=== PATIENT | male | born 1965 | race Caucasian/White ===

== ENCOUNTER 2016-12-01 00:04 | Observation (INO) | payer BC, OTHER ==
[~2016-12-01] VITALS: Ht 180.3 cm; Wt 88.2 kg
[~2016-12-01 00:04] MED LIST: ALBUAER2 INH; B-COTAB18 PO; LRS10 PO; LSN25 PO; MULTTAB58 PO; OXY/15 PO; SYMIN/8045 INH; TPRSR/25 PO
[2016-12-01] MEDS ORDERED: NITROGLYCERIN 0.4 MG SL PER TAB CHARGE SL PRN ×2 (00:15→01:45)
[2016-12-01 00:26] LABS: BASO % 0.3 %; BASO ABS # 0.03 K/uL (0-0.2); COMPLETE YES; EOS % 1.6 %; HEMATOCRIT 48.1 % (42-52); IG% 0.1 %; LYMPH % 18.2 %; LYMPH ABS # 1.95 K/uL (1.2-3.4); MEAN CELL VOLUME 83.1 fL (80-100); MEAN CORPUSCULAR HEMOGLOBIN 30.2 pg (25-34); MEAN CORPUSCULAR HGB CONC 36.4 g/dl (32-36); MEAN PLATELET VOLUME 10.7 fL (7.4-10.4); MONO % 6.8 %; PLATELET COUNT 237 K/uL (130-400); RED BLOOD COUNT 5.79 M/uL (4.7-6.1); WHITE BLOOD COUNT 10.69 K/uL (4.8-10.8)
[2016-12-01 00:44] LABS: ALT/SGPT 30 U/L (12-78); AST/SGOT 10 U/L (15-37); BLOOD UREA NITROGEN 16 mg/dl (7-18); BUN/CREATININE RATIO 12.4 (10-20); CALCIUM 9.1 mg/dl (8.5-10.1); CARBON DIOXIDE 26 mmol/L (21-32); CHLORIDE 108 mmol/L (98-107); GLUCOSE 102 mg/dl (70-99); POTASSIUM 3.4 mmol/L (3.5-5.1); SODIUM 145 mmol/L (136-145)
[2016-12-01] MEDS ORDERED: VNTHFA/IN PO ×2 (00:45→14:50)
[2016-12-01 00:49] LABS: ALKALINE PHOSPHATASE 73 U/L (45-117)
--- NOTE | 2016-12-01 01:26 | EMERGENCY ROOM VISIT NOTE ---
History First contact with patient: 23:45 Chief Complaint: CHEST PAIN Stated Complaint: CHEST PAIN/SHORT OF BREATH Nursing Triage Summary: c/o left sided CP that radiates behind left ear and down left arm that started around 2200. Pt states he felt "like i've been hit in the chest". Pt states he experienced CP 3 days ago that was sharp, but only lasted a few seconds. Also noted vomiting 3 days ago. Pt states he has not been taking his metoprolol or lisinopril due to money issues. History of Present Illness The patient is a 51 year old male who presents to the Emergency Room with complaints of chest pain that radiates to his neck and jaw and shoulder for the past few hours. Patient has a history of heart disease. He is unsure she's had a heart attack. He lost his insurance has not seen anybody in several months. He has not taken his blood pressure medication. His brother had a heart attack and his father has extensive heart disease also. Patient does not smoke. He describes the chest pain as discomfort, ranging in severity currently 7 out of 10. EMS gave nitroglycerin and aspirin with some improvement of symptoms. Patient states he is mildly short of breath because of the pain. Patient denies diaphoresis, nausea, vomiting, abdominal pain, leg pain or swelling, recent travel, tobacco use, history DVT, PE or family history of DVT or PE. No injury to the area. Review of Systems See HPI for pertinent positives & negatives. A total of 10 systems reviewed and were otherwise negative. Past Medical/Surgical History Medical Problems: (1) Asthma (2) Heart disease (3) Hypertension (4) Tear of meniscus of left knee Surgical Problems: (1) H/O cardiac catheterization Family History FHx: heart disease Hypertension Social History Smoking Status: Never Smoker Marital Status: Occupation Status: unemployed Current/Historical Medications Scheduled Budesonide/Formoterol Fumarate (Symbicort 80/4.5 Inhaler), 2 PUFFS INH DAILY Lisinopril (Lisinopril), 2.5 MG PO DAILY Metoprolol Succinate (Metoprolol Succinate ER), 25 MG PO DAILY Multiple Vitamin (Multivitamin), 1 TAB PO DAILY Oxycodone Hcl (Oxycodone Hcl), 15 MG PO QID Scheduled PRN Albuterol Hfa (Ventolin Hfa), 2 PUFFS PO QID PRN for SOB/Wheezing Baclofen (Baclofen), 10 MG PO TID PRN for Back Spasm Allergies Coded Allergies: No Known Allergies (Unverified , 12/01/16) Physical Exam Vital Signs Date Time Temp Pulse Resp B/P (MAP) Pulse Ox O2 Delivery O2 Flow Rate FiO2 12/01/16 00:35 101 18 108/61 95 Room Air 12/01/16 00:31 76 128/73 12/01/16 00:22 98 Room Air 12/01/16 00:16 36.9 93 18 139/94 98 Room Air 12/01/16 00:15 88 12/01/16 00:09 98 Room Air 12/01/16 00:08 98 Room Air Physical Exam VITALS: Vitals are noted on the nurse's note and reviewed by myself. Vital signs stable. GENERAL: Pleasant male, in no acute distress, nondiaphoretic, well-developed well-nourished. SKIN: The skin was without rashes, erythema, edema, or bruising. There is no tenting of the skin. Capillary reflex less than 2 seconds. HEAD: Normocephalic atraumatic. EARS: External auditory canals clear, tympanic membranes pearly anderson without erythema or effusion bilaterally. EYES: Pupils equal round and reactive to light and accommodation. Conjunctivae without injection, sclerae without icterus. Extraocular movements intact. NOSE: Patent, turbinates without inflammation or discharge. MOUTH: Mucous membranes moist. Pharynx without erythema or exudate. Uvula midline. Airway patent. Tongue does not deviate. NECK: Supple without nuchal rigidity. No lymphadenopathy. No thyromegaly. Cervical spine is nontender. No JVD. HEART: Regular rate and rhythm without murmurs gallops or rubs. Chest minimally tender to palpation left anterior chest LUNGS: Clear to auscultation bilaterally without wheezes, rales or rhonchi. No dullness to percussion. No retractions or accessory muscle use. ABDOMEN: Positive bowel sounds x 4. Normal tympanic percussion. Soft, nontender, without masses or organomegaly. Barrera sign negative. No guarding or rebound tenderness. MUSCULOSKELETAL: No muscle atrophy, erythema, or edema noted. NEURO: Patient was alert and oriented to person place and time. Normal sensation to light and sharp touch. No focal neurological deficits. Medical Decision & Procedures Laboratory Results 12/01/16 00:10 Red Blood Count 5.79, Mean Corpuscular Volume 83.1, Mean Corpuscular Hemoglobin 30.2, Mean Corpuscular Hemoglobin Concent 36.4, Mean Platelet Volume 10.7, Neutrophils (%) (Auto) 73.0, Lymphocytes (%) (Auto) 18.2, Monocytes (%) (Auto) 6.8, Eosinophils (%) (Auto) 1.6, Basophils (%) (Auto) 0.3, Neutrophils # (Auto) 7.80, Lymphocytes # (Auto) 1.95, Monocytes # (Auto) 0.73, Eosinophils # (Auto) 0.17, Basophils # (Auto) 0.03 12/01/16 00:10 Test 12/01/16 00:10 12/01/16 00:18 White Blood Count 10.69 K/uL (4.8-10.8) Red Blood Count 5.79 M/uL (4.7-6.1) Hemoglobin 17.5 g/dL (14.0-18.0) Hematocrit 48.1 % (42-52) Mean Corpuscular Volume 83.1 fL (80-100) Mean Corpuscular Hemoglobin 30.2 pg (25-34) Mean Corpuscular Hemoglobin Concent 36.4 g/dl (32-36) Platelet Count 237 K/uL (130-400) Mean Platelet Volume 10.7 fL (7.4-10.4) Neutrophils (%) (Auto) 73.0 % Lymphocytes (%) (Auto) 18.2 % Monocytes (%) (Auto) 6.8 % Eosinophils (%) (Auto) 1.6 % Basophils (%) (Auto) 0.3 % Neutrophils # (Auto) 7.80 K/uL (1.4-6.5) Lymphocytes # (Auto) 1.95 K/uL (1.2-3.4) Monocytes # (Auto) 0.73 K/uL (0.11-0.59) Eosinophils # (Auto) 0.17 K/uL (0-0.5) Basophils # (Auto) 0.03 K/uL (0-0.2) RDW Standard Deviation 39.9 fL (36.4-46.3) RDW Coefficient of Variation 13.4 % (11.5-14.5) Immature Granulocyte % (Auto) 0.1 % Immature Granulocyte # (Auto) 0.01 K/uL (0.00-0.02) Anion Gap 11.0 mmol/L (3-11) Est Creatinine Clear Calc Drug Dose 79.3 ml/min Estimated GFR () 74.3 Estimated GFR (Non- 64.1 BUN/Creatinine Ratio 12.4 (10-20) Calcium Level 9.1 mg/dl (8.5-10.1) Total Bilirubin 0.4 mg/dl (0.2-1) Direct Bilirubin 0.1 mg/dl (0-0.2) Aspartate Amino Transf (AST/SGOT) 10 U/L (15-37) Alanine Aminotransferase (ALT/SGPT) 30 U/L (12-78) Alkaline Phosphatase 73 U/L (45-117) Troponin I < 0.015 ng/ml (0-0.045) Total Protein 8.1 gm/dl (6.4-8.2) Albumin 4.3 gm/dl (3.4-5.0) Lipase 246 U/L (73-393) Bedside Troponin I < 0.030 ng/ml (0-0.045) Medications Administered Medications (Trade) Dose Ordered Sig/Belia Route Start Time Stop Time Status Last Admin Dose Admin Nitroglycerin (Nitrostat Tab) 0.4 mg Q5M PRN SL 12/01/16 00:15 12/31/16 00:14 12/01/16 00:30 0.4 MG ED Course Prior records/ancillary studies reviewed. Triage Nursing notes reviewed. Additional history obtained from EMS. The patient's history was concerning for chest pain. Differential diagnosis: Etiologies such as cardiac ischemia, aortic dissection, pulmonary embolism, pneumonia, pneumothorax, musculoskeletal, infections, pericarditis, myocarditis , esophageal rupture, gastrointestinal, as well as others were entertained. Physical examination: As above. ER treatment provided: Nitroglycerin On reassessment the patient felt better. Diagnostic interpretation by me: The electrocardiogram was negative for pathologic change. Normal sinus, normal intervals, no acute ST-T wave changes. Impression normal sinus rhythm interpreted by myself The labs revealed negative troponin. Stable H&H Imaging studies: Chest x-ray with no acute consolidation, pneumothorax or free air per my interpretation Consultation: A consultation was placed with the hospitalist, Dr Pearson. The case was discussed and diagnostics were reviewed. The patient was evaluated in the ER for further treatment. Exam and history seem consistent with chest pain with concerns for cardiac in etiology. Patient has an extensive family history and also has prior heart disease history. He states his ejection fraction is 35%. This was several years ago. No recent imaging as he lost his insurance as he lost his job. Patient did have some improvement after nitroglycerin. EKG was negative. First troponin was negative. He will be evaluated by medicine for possible admission. By the evaluation outlined above emergent etiologies such as aortic dissection , pulmonary embolism, pneumonia, pneumothorax, infections, pericarditis, myocarditis, gastrointestinal, as well as others were deemed relatively unlikely. The pt informed about the findings as listed above. All questions were answered and pleased with the treatment. Case reviewed with my attending Medical Decision As above Impression Primary Impression: Substernal precordial chest pain Departure Information Dispostion Being Evaluated By Hospitalist Condition GOOD Referrals No Doctor, Assigned (PCP) Patient Instructions [facility]
[2016-12-01] MEDS ORDERED: SODIUM CHLORIDE 0.9% 1000ML 1,000 ML IV SCH (01:42)
[2016-12-01] MEDS ORDERED: MAGNESIUM HYDROXIDE SUSP 30 ML UDC PO PRN (01:45)
[2016-12-01] MEDS ORDERED: ACETAMINOPHEN 325 MG TAB PO PRN (01:45)
[2016-12-01] MEDS ORDERED: ONDANSETRON INJ 2 MG/ML 2 ML VIAL IV PRN (01:45)
[2016-12-01] MEDS ORDERED: ALUMINUM/MAGNESIUM/SIMETH (MAALOX MAX) 30 ML UDC PO PRN (01:45)
[2016-12-01] MEDS ORDERED: POLYETHYLENE (MIRALAX) 17 GM PACK PO PRN (01:45)
[2016-12-01] MEDS ORDERED: POTASSIUM CHLR 10 MEQ / WTR 10 MEQ IV STA (01:45)
[2016-12-01 02:50] VITALS: BP 118/77; PULSE 70; TEMP 36.6; O2SAT 99; Ht 180.3 cm; Wt 88.2 kg
[2016-12-01] MEDS ORDERED: IV FLUIDS COMPLETED PRN (04:15)
--- NOTE | 2016-12-01 04:24 | History and Physical ---
History & Physical Date & Time of Service: Dec 01, 2016 at 04:17 Chief Complaint: Substernal Precordial Chest Pain Primary Care Physician: No Doctor, Assigned History of Present Illness Source: patient This is a 51 year old with a PMH of asthma and LVEF dysfunction presents with L sided chest pain; patient states that the pain began the day of admission; states it was a L sided chest pain that radiated to the L jaw and L shoulder/ arm. He states that the pain is a sharp pain, almost as if someone hit him with a hammer. No shortness of breath or fevers noted. States he had a cardiac cath years ago and at that time he was told that his EF was around 30-35%, but no coronary artery disease. He was placed on low dose lisinopril and metoprolol. He has been off of meds for a few months due to lack of insurance; but he has now obtained medical insurance. No shortness of breath. Past Medical/Surgical History Medical Problems: (1) Asthma Status: Chronic (2) Heart disease Status: Chronic (3) Hypertension Status: Chronic (4) Tear of meniscus of left knee Status: Resolved Surgical Problems: (1) H/O cardiac catheterization Status: Resolved Family History FHx: heart disease Hypertension Social History Smoking Status: Never Smoker Marital Status: Occupational Status: unemployed Allergies Coded Allergies: No Known Allergies (Unverified , 12/01/16) Home Medications Scheduled Budesonide/Formoterol Fumarate (Symbicort 80/4.5 Inhaler), 2 PUFFS INH DAILY Lisinopril (Lisinopril), 2.5 MG PO DAILY Metoprolol Succinate (Metoprolol Succinate ER), 25 MG PO DAILY Multiple Vitamin (Multivitamin), 1 TAB PO DAILY Oxycodone Hcl (Oxycodone Hcl), 15 MG PO QID Scheduled PRN Albuterol Hfa (Ventolin Hfa), 2 PUFFS PO QID PRN for SOB/Wheezing Baclofen (Baclofen), 10 MG PO TID PRN for Back Spasm Review of Systems Constitutional: No fever, No chills Respiratory: No cough, No sputum, No shortness of breath, No dyspnea on exertion, No dyspnea at rest, No hemoptysis Cardiovascular: + chest pain, No edema, No palpitations Abdomen: No pain, No nausea, No vomiting, No diarrhea Musculoskeletal: No joint pain, No muscle pain Genitourinary - Male: No hematuria, No dysuria, No urinary frequency, No urinary urgency Neurologic: No weakness, No numbness/tingling, No vertigo, No balance problems Psychiatric: No depression symptoms, No anxiety Endocrine: No fatigue Hematologic / Lymphatic: No abnormal bleeding/bruising Integumentary: No rash Allergic / Immunologic: No environmental allergies, No seasonal allergies Physical Exam Vital Signs Date Time Temp Pulse Resp B/P (MAP) Pulse Ox O2 Delivery O2 Flow Rate FiO2 12/01/16 02:50 36.6 70 16 118/77 (91) 99 Room Air 12/01/16 02:50 36.6 70 16 118/77 99 Room Air 12/01/16 01:53 66 16 111/81 98 Room Air 12/01/16 00:35 101 18 108/61 95 Room Air 12/01/16 00:31 76 128/73 12/01/16 00:22 98 Room Air 12/01/16 00:16 36.9 93 18 139/94 98 Room Air 12/01/16 00:15 88 12/01/16 00:09 98 Room Air 12/01/16 00:08 98 Room Air General Appearance: no apparent distress Head: normocephalic, atraumatic Eyes: normal inspection Respiratory/Chest: chest non-tender, lungs clear, normal breath sounds, no respiratory distress, no accessory muscle use Cardiovascular: regular rate, rhythm, no edema, no gallop, no JVD, no murmur, normal peripheral pulses Abdomen/GI: normal bowel sounds, non tender, soft, no organomegaly Back: no CVA tenderness, no muscle spasm Extremities/Musculoskelatal: normal inspection, no calf tenderness, normal capillary refill, no pedal edema, normal range of motion Neurologic/Psych: body die maker II-XII nml as tested, no motor/sensory deficits, alert, normal mood/affect, oriented x 3 Skin: normal color Lymphatic: no adenopathy Diagnostics Laboratory Results Results Past 24 Hours Test 12/01/16 00:10 12/01/16 00:18 Range/Units White Blood Count 10.69 4.8-10.8 K/uL Red Blood Count 5.79 4.7-6.1 M/uL Hemoglobin 17.5 14.0-18.0 g/dL Hematocrit 48.1 42-52 % Mean Corpuscular Volume 83.1 80-100 fL Mean Corpuscular Hemoglobin 30.2 25-34 pg Mean Corpuscular Hemoglobin Concent 36.4 32-36 g/dl Platelet Count 237 130-400 K/uL Mean Platelet Volume 10.7 7.4-10.4 fL Neutrophils (%) (Auto) 73.0 % Lymphocytes (%) (Auto) 18.2 % Monocytes (%) (Auto) 6.8 % Eosinophils (%) (Auto) 1.6 % Basophils (%) (Auto) 0.3 % Neutrophils # (Auto) 7.80 1.4-6.5 K/uL Lymphocytes # (Auto) 1.95 1.2-3.4 K/uL Monocytes # (Auto) 0.73 0.11-0.59 K/uL Eosinophils # (Auto) 0.17 0-0.5 K/uL Basophils # (Auto) 0.03 0-0.2 K/uL RDW Standard Deviation 39.9 36.4-46.3 fL RDW Coefficient of Variation 13.4 11.5-14.5 % Immature Granulocyte % (Auto) 0.1 % Immature Granulocyte # (Auto) 0.01 0.00-0.02 K/uL Sodium Level 145 136-145 mmol/L Potassium Level 3.4 3.5-5.1 mmol/L Chloride Level 108 98-107 mmol/L Carbon Dioxide Level 26 21-32 mmol/L Anion Gap 11.0 3-11 mmol/L Blood Urea Nitrogen 16 7-18 mg/dl Creatinine 1.30 0.60-1.40 mg/dl Est Creatinine Clear Calc Drug Dose 79.3 ml/min Estimated GFR () 74.3 Estimated GFR (Non- 64.1 BUN/Creatinine Ratio 12.4 10-20 Random Glucose 102 70-99 mg/dl Calcium Level 9.1 8.5-10.1 mg/dl Total Bilirubin 0.4 0.2-1 mg/dl Direct Bilirubin 0.1 0-0.2 mg/dl Aspartate Amino Transf (AST/SGOT) 10 15-37 U/L Alanine Aminotransferase (ALT/SGPT) 30 12-78 U/L Alkaline Phosphatase 73 45-117 U/L Troponin I < 0.015 0-0.045 ng/ml Total Protein 8.1 6.4-8.2 gm/dl Albumin 4.3 3.4-5.0 gm/dl Lipase 246 73-393 U/L Bedside Troponin I < 0.030 0-0.045 ng/ml Normal EKG Impression Assessment and Plan This is a 51 year old with a PMH of asthma and LVEF dysfunction presents with L sided chest pain Chest Pain r/o ACS presents with L sided chest pain EKG - NSR with no ST-T wave changes initial set of cardiac enzymes negative states he had a previous, possible non-ischemic cardiomyopathy with EF of 30-35% will check an echo trend cardiac enzymes aspirin 81mg, low dose lisinopril and metoprolol added nitro PRN for pain cardiology consultation for further input DVT ppx SCDs FULL CODE Advanced Directives Existing Living Will: No Existing Power of Marine Equipment Research Engineer: No VTE Prophylaxis VTE Risk Assessment Done? Y/N: Yes Risk Level: Moderate
--- NOTE | 2016-12-01 07:11 | DIAGNOSTIC IMAGING REPORT ---
SINGLE VIEW CHEST CLINICAL HISTORY: Atypical chest pain. FINDINGS: An AP, portable, upright chest radiograph is compared to study dated 03/09/2015. The cardiomediastinal silhouette is unremarkable. The lungs appear hyperinflated and hyperlucent with flattening of the diaphragm suggesting obstructive physiology. Nonspecific interstitial thickening is noted. No airspace consolidation, large pleural effusion, or pneumothorax is seen. The bony thorax is grossly intact. IMPRESSION: Findings suggest obstructive physiology. There is no acute cardiopulmonary abnormality. Electronically signed by: Zeke Carlos M.D. 12/01/2016 7:10 AM Dictated Date/Time: 12/01/2016 7:09 AM
[2016-12-01 07:47] VITALS: BP 132/79; PULSE 54; TEMP 36.9; O2SAT 98
[2016-12-01 08:10] VITALS: PULSE 65; O2SAT 98
[2016-12-01 08:47] LABS: CKMB/CK RATIO 1.1 (0-3.0)
--- NOTE | 2016-12-01 08:56 | ECHOCARDIOGRAM REPORT ---
*NOTICE TO RECEIVING CONSTITUTION PARTY AGENCY This information is strictly Confidential and protected under [place] law. [place] law prohibits you from making any further disclosure of this information unless further disclosure is expressly permitted by the written consent of the person to whom it pertains or is authorized by law. A general authorization for the release of medical or other information is not sufficient for this purpose. Hospital accepts no responsibility if the information is made available to any other person, INCLUDING THE PATIENT. Interpretation Summary * Name: MARISELA FOX Study Date: 12/01/2016 07:21 AM BP: 118/77 mmHg * Patient Location: C.2T\S\S238\S\2 HR: 61 * : 1965 (M/d/yyyy) Gender: Male Height: 70 in * Age: 51 yrs Ethnicity: CA Weight: 200 lb * Ordering Physician: Shaina Pearson * Referring Physician: Self, Referred * Performed By: Vicky Mason RCS * * Reason For Study: H/O LVEF DYSFUNCTION / CHEST PAIN * BSA: 2.1 m2 * -- Conclusions -- * There is moderate concentric left ventricular hypertrophy. * The left ventricular wall motion is normal. * The LV Ejection Fraction = 60-65%. * The LV diastolic function is normal. * There is no significant valvular heart disease. Procedure Details * A complete two-dimensional transthoracic echocardiogram was performed (2D, M-mode, Doppler and color flow Doppler). Left Ventricle * The left ventricle is normal in size. * There is moderate concentric left ventricular hypertrophy. * Left ventricular systolic function is normal. * Ejection Fraction = 60-65%. * The left ventricular wall motion is normal. Right Ventricle * The right ventricle is normal size. * The right ventricular systolic function is normal as assessed by tricuspid annular plane systolic excursion (TAPSE) (normal >1.5 cm). Atria * The left atrial size is normal. * Right atrial size is normal. * There is no evidence of atrial septal defect, but resolution does not allow assessment for a patent foramen ovale. Mitral Valve * The mitral valve is normal. * There is no mitral valve stenosis. * Significant mitral regurgitation is absent. Tricuspid Valve * The tricuspid valve is normal. * There is no tricuspid stenosis. * Significant tricuspid regurgitation is absent. Aortic Valve * The aortic valve is trileaflet. * Aortic stenosis is absent. * There is no significant aortic regurgitation. Pulmonic Valve * The pulmonary valve is not well seen, but the Doppler examination is normal without significant regurgitation or stenosis. Great Vessels * The aortic root and proximal ascending aorta are normal sized. Pericardium/Pleural * There is no pericardial effusion. Great Vessels * Normal inferior vena cava diameter and respiratory variation suggests normal central venous pressure. * Normal inferior vena cava size and collapsability with sniff indicates a normal right atrial pressure of 3 mmHg Left Ventricular Diastolic Function * The LV diastolic function is normal. MMode 2D Measurements and Calculations IVSd 1.5 cm IVSs 2.0 cm LVIDd 4.6 cm LVIDs 3.1 cm LVPWd 1.1 cm LVPWs 1.4 cm IVS/LVPW 1.3 FS 32.1 % EDV(Teich) 95.2 ml ESV(Teich) 37.7 ml EF(Teich) 60.4 % EDV(cubed) 94.6 ml ESV(cubed) 29.5 ml EF(cubed) 68.8 % % IVS thick 30.1 % % LVPW thick 28.8 % LV mass(C)d 229.5 grams LV mass(C)dI 110.0 grams/m\S\2 LV mass(C)s 203.2 grams LV mass(C)sI 97.3 grams/m\S\2 SV(Teich) 57.5 ml SI(Teich) 27.5 ml/m\S\2 SV(cubed) 65.0 ml SI(cubed) 31.1 ml/m\S\2 Ao root diam 3.4 cm Ao root area 9.0 cm\S\2 LVOT diam 2.0 cm LVOT area 3.0 cm\S\2 LVAd ap4 37.3 cm\S\2 LVLd ap4 8.8 cm EDV(MOD-sp4) 127.8 ml EDV(sp4-el) 134.0 ml LVAs ap4 21.5 cm\S\2 LVLs ap4 7.4 cm ESV(MOD-sp4) 52.3 ml ESV(sp4-el) 53.3 ml EF(MOD-sp4) 59.1 % EF(sp4-el) 60.2 % LVAd ap2 34.3 cm\S\2 LVLd ap2 8.6 cm EDV(MOD-sp2) 114.4 ml EDV(sp2-el) 116.5 ml LVAs ap2 18.8 cm\S\2 LVLs ap2 7.1 cm ESV(MOD-sp2) 41.1 ml ESV(sp2-el) 42.4 ml EF(MOD-sp2) 64.1 % EF(sp2-el) 63.6 % LVLd %diff -2.62 % EDV(MOD-bp) 121.5 ml LVLs %diff -3.95 % ESV(MOD-bp) 45.6 ml EF(MOD-bp) 62.5 % SV(MOD-sp4) 75.5 ml SI(MOD-sp4) 36.2 ml/m\S\2 SV(MOD-sp2) 73.4 ml SI(MOD-sp2) 35.1 ml/m\S\2 SV(MOD-bp) 75.9 ml SI(MOD-bp) 36.4 ml/m\S\2 SV(sp4-el) 80.7 ml SI(sp4-el) 38.7 ml/m\S\2 SV(sp2-el) 74.0 ml SI(sp2-el) 35.5 ml/m\S\2 Doppler Measurements and Calculations MV E max meme 84.9 cm/sec MV A max meme 43.0 cm/sec MV E/A 2.0 MV P1/2t max meme 97.7 cm/sec MV P1/2t 83.7 msec MVA(P1/2t) 2.6 cm\S\2 MV dec slope 341.8 cm/sec\S\2 MV dec time 0.28 sec Ao V2 max 116.5 cm/sec Ao max PG 5.4 mmHg Ao max PG (full) -1.71 mmHg ERNIE(V,A) 3.5 cm\S\2 ERNIE(V,D) 3.5 cm\S\2 LV V1 max PG 7.1 mmHg LV V1 max 133.6 cm/sec PA V2 max 103.6 cm/sec PA max PG 4.3 mmHg
[2016-12-01] MEDS ORDERED: LISINOPRIL 2.5 MG TAB PO SCH (09:00)
[2016-12-01] MEDS ORDERED: ASPIRIN 81 MG ECTAB PO SCH (09:00)
[2016-12-01] MEDS ORDERED: METOPROLOL TARTRATE 25 MG TAB PO SCH (09:00)
--- NOTE | 2016-12-01 10:43 | Cardiology Consultation ---
Cardiology Consultation Date of Consultation: Dec 01, 2016 History of Present Illness Richard Norman is a 51 year old male seen in cardiology consultation per the request of Dr Pearson for the evaluation of chest discomfort. The patient's recent illness dates back to approximately 5 days ago when he had feelings of nauseousness, diarrhea, and vomiting over the weekend with associated dizziness and decreased appetite. He had no chest discomfort at that point. Yesterday he was getting ready for work and he noted abrupt onset of severe chest discomfort that felt as if someone had punched him in the mid part of his chest per his description. That intense chest discomfort lasted 10- 15 seconds and abated but since he has had a lesser intensity persistent chest pain that has not gone away. He presented to the emergency department and had an EKG performed at 12:19 AM revealed normal sinus rhythm with no significant ST changes. A repeat EKG this morning was also within normal limits. Cardiac enzymes have been negative 3 so far with a measurement at 12:12 AM, 12:18 AM, and 7:49 AM. During my interview with the patient he was in no acute distress but described 7 /10 intensity persistent chest discomfort. Transthoracic echocardiogram had been performed that revealed evidence of mild to moderate concentric LVH with normal resting wall motion and normal left ventricular ejection fraction in the 55-60% range. History Past Medical History: Patient describes having been admitted for similar circumstances in [place] several years ago. He describes being diagnosed with a cardiomyopathy with an ejection fraction of 35% and underwent cardiac catheterization and was told he had normal coronary arteries. He recalls being placed on medications including metoprolol and lisinopril and took them for several years and has been off of the medications for 3-4 months due to cost concerns, lack of insurance. Hypertension Chart history of asthma Past Surgical History: He had a lipoma removed Remote knee surgery Cardiac catheterization several years ago he believes in approximately 2013 Social History: He is a nonsmoker. He does not drink significant amount of alcohol. 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 He does some degree of heavy lifting notes no recent lifting out of his ordinary routine. Family History: Patient's mother is alive in her 70s with no history of heart disease. The patient states that he is not in contact with his father. His father is in his 70s and he believes his father had a heart surgery. The patient has a brother who was a few years younger than him and reportedly had a myocardial infarction and required either cardiac surgery or stent type procedure the patient is not certain. Review Of Systems See above for pertinent positives & negatives. A total of 10 systems reviewed and were otherwise negative. Allergies Coded Allergies: No Known Allergies (Unverified , 12/01/16) Medications Reported Home Medications Medications Dose Route/Sig Max Daily Dose Days Date Category Ventolin Hfa (Albuterol) 200 Puffs/18913 Mcg Aers 2 Puffs PO QID PRN 12/01/16 Reported Symbicort 80/4.5 Inhaler (Budesonide/Formoterol Fumarate) 120 Puffs/ Aero 2 Puffs INH DAILY 04/07/15 Reported Baclofen 10 Mg Tab 10 Mg PO TID PRN 04/07/15 Reported Lisinopril 2.5 Mg Tab 2.5 Mg PO DAILY 04/07/15 Reported Multivitamin (Multiple Vitamin) 1 Tab Tab 1 Tab PO DAILY 01/20/15 Reported Oxycodone Hcl 15 Mg Tab 15 Mg PO QID 01/20/15 Reported Metoprolol Succinate ER (Metoprolol Succinate) 25 Mg Tabcr 25 Mg PO DAILY 01/20/15 Reported Physical Exam Vital Signs (Last 8hrs): Last 8 Hrs Date Time Temp Pulse Resp B/P (MAP) Pulse Ox O2 Delivery O2 Flow Rate FiO2 12/01/16 08:10 65 12/01/16 08:10 98 Room Air 12/01/16 07:47 36.9 54 16 132/79 (96) 98 Room Air 12/01/16 02:50 36.6 70 16 118/77 (91) 99 Room Air 12/01/16 02:50 36.6 70 16 118/77 99 Room Air General Appearance: Alert and Oriented x3. NAD. Head: Normocephalic Atraumatic. Eyes: PERRLA, EOMI, conjunctiva and sclera clear Neck: Supple. No carotid bruits noted. No JVD. No HJD. Respiratory: Breath sounds clear to auscultation bilaterally. No w/r/r. Cardiovascular: Reg rate and rhythm. S1 and S2 noted. No murmurs, rubs, gallops. PMI non displace. Abdomen: Normal bowel sounds, soft nontender. no abdominal bruits. Extremities: No edema, no clubbing or cyanosis. distal pulses 2/4 bilaterally. Neuro: No focal deficits. Psychiatric: Normal affect. Data See above for pertinent positives & negatives. A total of 10 systems reviewed and were otherwise negative. EKG as outlined above. Telemetry reveals normal sinus rhythm with no significant arrhythmia. Chest x-ray reported by radiology is suggestive of hyper inflation and hyperlucency with flattening of the diaphragm suggestive of obstructive lung disease. No airspace consolidation or large pleural effusion. Assessment & Plan Impression: 51-year-old male 1. Chest discomfort, that has persisted for close to 12 hours, with negative cardiac enzymes negative EKG, normal resting wall motion on echocardiogram. 2. Hypertension, blood pressure control. 3. Per patient's description history of nonischemic cardiomyopathy with moderate LV systolic dysfunction noted several years ago and negative cardiac catheterization per his recollection. Discussion/recommendations: The patient has a history of what sounds like a nonischemic cardiomyopathy. He had been off medications for the last few months due to lack of insurance, but is now insured Once to reestablish care. Fortunately his echocardiogram reveals resolution of the previously noted cardiomyopathy. I have asked for the patient to sign a records release to obtain the report of his prior cardiac catheterization. Although he has had chest discomfort at rest that is been present for 12 hours, his enzymes and EKG are negative. Recommend proceeding with exercise stress echocardiogram at this time.
[2016-12-01 12:10] VITALS: PULSE 65
[2016-12-01 12:16] VITALS: BP 157/77; PULSE 94; TEMP 36.8; O2SAT 92
--- NOTE | 2016-12-01 12:29 | Progress Note ---
Internal Med Progress Note Date of Service: Dec 01, 2016. Provider Documentation: SUBJECTIVE: Seen and examined at bedside. States having left sided chest pain which increases with deep breathing, also on palpation. Denies any cough, SOB, wheezing, fever, chills. Offers no other complaints. OBJECTIVE: Vital Signs-as noted below Physical Exam: Vitals signs as noted above General Appearance:Moderately built and nourished, no apparent distress Head: normocephalic, Atraumatic Eyes: normal inspection, EOMI, PERRL Neck: supple, Trachea midline Respiratory/Chest: Normal breath sounds, CTA Cardiovascular: S1, S2, No murmur Abdomen/GI:Soft, Non tender, Bowel sounds present Extremities/Musculoskelatal:normal inspection, no edema Neurologic/Psych:AAOX3, grossly no focal neurological deficits Skin: normal color, warm Lab data as noted below. ASSESSMENT & PLAN: Patient is a 51 yr male with a PMH of Asthma and LVEF dysfunction presented with left sided chest pain Chest Pain r/o ACS Likely musculoskeletal EKG: NSR with no ST changes Troponin X2: Negative ECHO: left ventricular wall motion is normal, EF:60-65% Continue Aspirin, lisinopril, metoprolol Nitro PRN Appreciate cardiology input Last Cath:10/07/14: No coronary artery disease Has not been taking medications at home secondary to Insurance issues Exercise Stress test: Negative D-dimer:Negative Plan to discontinue metoprolol and lisinopril per cardiology recommendations. H/O Asthma: No signs of exacerbation Continue home inhalers Has not been using inhalers at home secondary to Insurance issues HO Sleep Apnea: Not using CPAP DVT Px: SCDs Code Status: FULL CODE Disposition: Plan to discharge home today Follow up with your Physician at [facility] in 1 week as advised Use medications prescribed regularly as advised Take Ibuprofen as need for pain Seek immediate medical attention if your symptoms reoccur or worsen Your metoprolol and lisinopril have been discontinued per recommendations from cardiology PROCEDURES: ECHO: * -- Conclusions -- * There is moderate concentric left ventricular hypertrophy. * The left ventricular wall motion is normal. * The LV Ejection Fraction = 60-65%. * The LV diastolic function is normal. * There is no significant valvular heart disease. Vital Signs: Date Time Temp Pulse Resp B/P (MAP) Pulse Ox O2 Delivery O2 Flow Rate FiO2 12/01/16 12:16 36.8 94 18 157/77 (103) 92 Room Air 12/01/16 12:10 65 12/01/16 12:10 Room Air 12/01/16 08:10 65 12/01/16 08:10 98 Room Air 12/01/16 07:47 36.9 54 16 132/79 (96) 98 Room Air 12/01/16 02:50 36.6 70 16 118/77 (91) 99 Room Air 12/01/16 02:50 36.6 70 16 118/77 99 Room Air 12/01/16 01:53 66 16 111/81 98 Room Air 12/01/16 00:35 101 18 108/61 95 Room Air 12/01/16 00:31 76 128/73 12/01/16 00:22 98 Room Air 12/01/16 00:16 36.9 93 18 139/94 98 Room Air 12/01/16 00:15 88 12/01/16 00:09 98 Room Air 12/01/16 00:08 98 Room Air Lab Results: Results Past 24 Hours Test 12/01/16 00:10 12/01/16 00:18 12/01/16 07:49 12/01/16 13:43 Range/Units White Blood Count 10.69 4.8-10.8 K/uL Red Blood Count 5.79 4.7-6.1 M/uL Hemoglobin 17.5 14.0-18.0 g/dL Hematocrit 48.1 42-52 % Mean Corpuscular Volume 83.1 80-100 fL Mean Corpuscular Hemoglobin 30.2 25-34 pg Mean Corpuscular Hemoglobin Concent 36.4 32-36 g/dl Platelet Count 237 130-400 K/uL Mean Platelet Volume 10.7 7.4-10.4 fL Neutrophils (%) (Auto) 73.0 % Lymphocytes (%) (Auto) 18.2 % Monocytes (%) (Auto) 6.8 % Eosinophils (%) (Auto) 1.6 % Basophils (%) (Auto) 0.3 % Neutrophils # (Auto) 7.80 1.4-6.5 K/uL Lymphocytes # (Auto) 1.95 1.2-3.4 K/uL Monocytes # (Auto) 0.73 0.11-0.59 K/uL Eosinophils # (Auto) 0.17 0-0.5 K/uL Basophils # (Auto) 0.03 0-0.2 K/uL RDW Standard Deviation 39.9 36.4-46.3 fL RDW Coefficient of Variation 13.4 11.5-14.5 % Immature Granulocyte % (Auto) 0.1 % Immature Granulocyte # (Auto) 0.01 0.00-0.02 K/uL Sodium Level 145 136-145 mmol/L Potassium Level 3.4 3.5-5.1 mmol/L Chloride Level 108 98-107 mmol/L Carbon Dioxide Level 26 21-32 mmol/L Anion Gap 11.0 3-11 mmol/L Blood Urea Nitrogen 16 7-18 mg/dl Creatinine 1.30 0.60-1.40 mg/dl Est Creatinine Clear Calc Drug Dose 79.3 ml/min Estimated GFR () 74.3 Estimated GFR (Non- 64.1 BUN/Creatinine Ratio 12.4 10-20 Random Glucose 102 70-99 mg/dl Calcium Level 9.1 8.5-10.1 mg/dl Total Bilirubin 0.4 0.2-1 mg/dl Direct Bilirubin 0.1 0-0.2 mg/dl Aspartate Amino Transf (AST/SGOT) 10 15-37 U/L Alanine Aminotransferase (ALT/SGPT) 30 12-78 U/L Alkaline Phosphatase 73 45-117 U/L Troponin I < 0.015 < 0.015 0-0.045 ng/ml Total Protein 8.1 6.4-8.2 gm/dl Albumin 4.3 3.4-5.0 gm/dl Lipase 246 73-393 U/L Bedside Troponin I < 0.030 0-0.045 ng/ml Total Creatine Kinase 45 39-308 U/L Creatine Kinase MB 0.5 0.5-3.6 ng/ml Creatine Kinase MB Ratio 1.1 0-3.0 D-Dimer 310 0-500 ug/L FEU
[2016-12-01] MEDS ORDERED: BUDESONIDE/FORMOTEROL FUMARATE 80/4.5 60 PUFFS/INHALER INH SCH (13:00)
--- NOTE | 2016-12-01 13:02 | EXERCISE STRESS ECHO ---
*NOTICE TO RECEIVING [employer] This information is strictly Confidential and protected under [place] law. [place] law prohibits you from making any further disclosure of this information unless further disclosure is expressly permitted by the written consent of the person to whom it pertains or is authorized by law. A general authorization for the release of medical or other information is not sufficient for this purpose. Hospital accepts no responsibility if the information is made available to any other person, INCLUDING THE PATIENT. Interpretation Summary * Name: MARISELA FOX Study Date: 12/01/2016 10:43 AM BP: 127/82 mmHg * Patient Location: .2T\\S\\S238\\S\\2 HR: 60 * : 1965 (M/d/yyyy) Gender: Male Height: 71 in * Age: 51 yrs Ethnicity: CA Weight: 194 lb * Ordering Physician: Cal Do * Referring Physician: Self, Referred * Performed By: Vicky Mason RCS * * Reason For Study: CHEST PAIN * BSA: 2.1 m2 * The study was technically adequate. * -- Conclusions -- * STRESS STUDY: * Normal exercise stress echocardiogram. * No echocardiographic or ECG evidence of myocardial ischemia having achieved heart rate adequate for diagnostic purposes. * The patient achieved an above average workload of 13 METS completing stage IV of a standard Narciso protocol. * The patient described at "6.5/10" chest discomfort at rest that did no progress significantly with exercise and was atypical in character for angina. * The heart rate response to exercise was normal. * The blood pressure response to exercise was normal. Procedure Details * ECHOEX, CPT #98444 Left Ventricle * The left ventricle is normal in size. There is moderate concentric left ventricular hypertrophy. Left ventricular systolic function is normal at rest. The LV Ejection Fraction = 60-65% at rest. * Resting wall motion: Normal. Stress wall motion: Appropriate increase in Left ventricular systolic function and decrease in cavity size. No stress induced segmental wall motion abnormalities. Stress Parameters * The baseline ECG reveals SR with incomplete RBBB. * The stress ECG response was normal * Occasional PACs were noted on the stress ECG. * The stress portion of this study was personally supervised by the undersigned interpreting physician. * Rest heart rate was '60' BPM. * Rest blood pressure was '127/82' * Maximum heart rate achieved was 151 bpm. * Maximum heart rate was 88 % of maximum age-predicted heart rate. * Maximum blood pressure was '189/83' * Total exercise time was '12:00' * Maximum exercise MET level achieved was '13.70' METS * Maximum treadmill speed was '4.20' miles per hour. * Maximum treadmill elevation was '16.00'% grade.
--- NOTE | 2016-12-01 13:05 | Cardiology Progress Note ---
Cardiology Progress Note Date of Service Dec 01, 2016. Cardiology Progress Note Patient with non ischemic exercise stress echo having performed an above average workload of 13 METs. Patient described chest discomfort at baseline that did not change significantly with progressive exercise and was atypical in character for angina. Perhaps chest pain is due to recent chest trauma that happened a work a few days ago. No recent change in his asthma symptoms with no pleuritic component to the discomfort. Plan: Stable for discharge. Recommend pt re-establishes with PCP. BP is normal at present and LVEF is normal, do not think we need to resume past metoprolol and lisinopril at present. Only if he requires treatment for hypertension at follow up. BP is normal now, therefore do not think medication therapy is necessary. Recommend lipid panel as outpt and treatment if indicated. Recommend short course of outpatient ibuprofen for musculoskeletal chest pain. Pt should receive excuse for work, can return to normal duty on 12/05/16.
[2016-12-01] MEDS ORDERED: SYMIN/8045 INH (14:50)
--- NOTE | 2016-12-01 14:53 | Discharge Summary ---
Discharge Summary Date of Service Dec 01, 2016. Discharge Summary Admission Date: Dec 01, 2016 at 01:45 Discharge Date: Dec 01, 2016 Discharge Disposition: Home Principal Diagnosis: Chest Pain: Likely Musculoskeletal Procedures: * CXR: * Findings suggest obstructive physiology. There is no acute cardiopulmonary abnormality. * STRESS STUDY: * Normal exercise stress echocardiogram. * No echocardiographic or ECG evidence of myocardial ischemia having achieved heart rate adequate for diagnostic purposes. * The patient achieved an above average workload of 13 METS completing stage IV of a standard Narciso protocol. * The patient described at "6.5/10" chest discomfort at rest that did no progress significantly with exercise and was atypical in character for angina. * The heart rate response to exercise was normal. * The blood pressure response to exercise was normal. Consultations: Cardiology Pending Studies/Follow-Up: Follow up with your Physician at [facility] in 1 week as advised Use medications prescribed regularly as advised Take Ibuprofen as need for pain Seek immediate medical attention if your symptoms reoccur or worsen Your metoprolol and lisinopril have been discontinued per recommendations from cardiology Medication Reconciliation Continued Medications: Albuterol Hfa (Ventolin Hfa) 200 Puffs/91098 Mcg Aers 2 PUFFS PO QID PRN for SOB/Wheezing for 30 Days, #1 1 Refill (This prescription has been renewed) Baclofen (Baclofen) 10 Mg Tab 10 MG PO TID PRN for Back Spasm Budesonide/Formoterol Fumarate (Symbicort 80/4.5 Inhaler) 120 Puffs/ Aero 2 PUFFS INH DAILY for 30 Days, #1 1 Refill (This prescription has been renewed) Multiple Vitamin (Multivitamin) 1 Tab Tab 1 TAB PO DAILY, TAB Oxycodone Hcl (Oxycodone Hcl) 15 Mg Tab 15 MG PO QID, TAB Discontinued Medications: Lisinopril (Lisinopril) 2.5 Mg Tab 2.5 MG PO DAILY Metoprolol Succinate (Metoprolol Succinate ER) 25 Mg Tabcr 25 MG PO DAILY Admission Information HPI (per Admitting provider): This is a 51 year old with a PMH of asthma and LVEF dysfunction presents with L sided chest pain; patient states that the pain began the day of admission; states it was a L sided chest pain that radiated to the L jaw and L shoulder/ arm. He states that the pain is a sharp pain, almost as if someone hit him with a hammer. No shortness of breath or fevers noted. States he had a cardiac cath years ago and at that time he was told that his EF was around 30-35%, but no coronary artery disease. He was placed on low dose lisinopril and metoprolol. He has been off of meds for a few months due to lack of insurance; but he has now obtained medical insurance. No shortness of breath. Physical Exam (per Admitting): General Appearance: no apparent distress Head: normocephalic, atraumatic Eyes: normal inspection Respiratory/Chest: chest non-tender, lungs clear, normal breath sounds, no respiratory distress, no accessory muscle use Cardiovascular: regular rate, rhythm, no edema, no gallop, no JVD, no murmur , normal peripheral pulses Abdomen/GI: normal bowel sounds, non tender, soft, no organomegaly Back: no CVA tenderness, no muscle spasm Extremities/Musculoskelatal: normal inspection, no calf tenderness, normal capillary refill, no pedal edema, normal range of motion Neurologic/Psych: rad tech II-XII nml as tested, no motor/sensory deficits, alert , normal mood/affect, oriented x 3 Skin: normal color Lymphatic: no adenopathy Hospital Course Patient is a 51 yr male with a PMH of Asthma and LVEF dysfunction presented with left sided chest pain Chest Pain r/o ACS Likely musculoskeletal EKG: NSR with no ST changes Troponin X2: Negative ECHO: left ventricular wall motion is normal, EF:60-65% Continue Aspirin, lisinopril, metoprolol Nitro PRN Appreciate cardiology input Last Cath:10/07/14: No coronary artery disease Has not been taking medications at home secondary to Insurance issues Exercise Stress test: Negative D-dimer:Negative Plan to discontinue metoprolol and lisinopril per cardiology recommendations. H/O Asthma: No signs of exacerbation Continue home inhalers Has not been using inhalers at home secondary to Insurance issues HO Sleep Apnea: Not using CPAP DVT Px: SCDs Code Status: FULL CODE Disposition: Plan to discharge home today Follow up with your Physician at [facility] in 1 week as advised Use medications prescribed regularly as advised Take Ibuprofen as need for pain Seek immediate medical attention if your symptoms reoccur or worsen Your metoprolol and lisinopril have been discontinued per recommendations from cardiology PROCEDURES: ECHO: * -- Conclusions -- * There is moderate concentric left ventricular hypertrophy. * The left ventricular wall motion is normal. * The LV Ejection Fraction = 60-65%. * The LV diastolic function is normal. * There is no significant valvular heart disease. Total time spent on discharge = 35 minutes This includes examination of the patient, discharge planning, medication reconciliation, and communication with other providers. Discharge Instructions Discharge Instructions Date of Service Dec 01, 2016. Admission Reason for Admission: Substernal Precordial Chest Pain Discharge Discharge Diagnosis / Problem: Chest Pain: Likely Musculoskeletal Discharge Goals Goal(s): Decrease discomfort, Improve function Activity Recommendations Activity Limitations: resume your previous activity Exercise/Sports Limitations: as tolerated . Instructions / Follow-Up Instructions / Follow-Up Follow up with your Physician at [facility] in 1 week as advised Use medications prescribed regularly as advised Take Ibuprofen as need for pain Seek immediate medical attention if your symptoms reoccur or worsen Your metoprolol and lisinopril have been discontinued per recommendations from cardiology Current Hospital Diet Patient's current hospital diet: Regular Diet Discharge Diet Recommended Diet: Regular Diet Pending Studies Studies pending at discharge: no Work Instructions Additional Instructions: Can return to work on 12/05/16 Medical Emergencies . Who to Call and When: Medical Emergencies: If at any time you feel your situation is an emergency, please call 911 immediately. . Non-Emergent Contact Non-Emergency issues call your: Primary Care Provider Call Non-Emergent contact if: you have a fever, your pain is not controlled, your pain is worsening, your pain is unusual for you, you have any medication questions . . "Provider Documentation" section prepared by Kar Yanez. . VTE Core Measure Inpt VTE Proph given/why not?: SCD's
[2016-12-01 15:00] VITALS: BP 157/77; PULSE 94; TEMP 36.8; O2SAT 92
[2016-12-01] MEDS ORDERED: ALBUTEROL HFA 8 GM INHALER INH PRN (17:00)
[2016-12-02] MEDS ORDERED: BUDESONIDE/FORMOTEROL FUMARATE 80/4.5 60 PUFFS/INHALER INH SCH (09:00)
== END 2016-12-01 15:32 | disposition home or self-care (01) ==
LOC: EDBD 00:04 → C.EDA 00:07 → C.2T 01:45 → ENRESERV 01:56
PROVIDERS: ADMIT Family Medicine; ATTEND Internal Medicine
DX: R07.9 Chest pain, unspecified (principal); I10 Essential (primary) hypertension; J45.909 Unspecified asthma, uncomplicated; Z79.899 Other long term (current) drug therapy; G47.30 Sleep apnea, unspecified; I51.9 Heart disease, unspecified